=== PATIENT | male | born 1955 | race Caucasian/White ===

== ENCOUNTER → 2017-02-23 | Outpatient (CLI) | payer OTHER | LOC: FIMAGING 13:37 | PROVIDERS: ATTEND Family Medicine Sports Medicine | DX: S56.811A Strain of other muscles, fascia and tendons at forearm level, right arm, initial encounter (principal); S53.441A Ulnar collateral ligament sprain of right elbow, initial encounter ==

== ENCOUNTER 2017-05-30 14:09 | Emergency (ER) | payer OTHER ==
--- NOTE | 2017-05-30 14:33 | CPEKG ---
Heart Rate: 70 RR Interval: 857 P-R Interval: 204 QRSD Interval: 88 QT Interval: 388 QTC Interval: 419 P Moriah: 10 QRS Moriah: 20 T Wave Moriah: 10 EKG Severity - ABNORMAL ECG - EKG Impression: SINUS RHYTHM EKG Impression: SUPRAVENTRICULAR BIGEMINY Electronically Signed By: Nirmal Rahman 30-May-2017 15:27:18
[2017-05-30 15:23] LABS: % IMMATURE GRANULYOCYTES 0.3 % (0.0-1.1); ABSOLUTE IMMATURE GRANULOCYTES 0.02 10^3/uL (0.00-0.10); ADD DIFF? NO; ADD MORPH? NO; ADD SCAN? NO; ATYPICAL LYMPHOCYTE FLAG 0 (0-99); FRAGMENT RBC FLAG 0 (0-99); HEMATOCRIT 44.6 % (40.0-51.0); HEMOGLOBIN 15.1 g/dL (13.7-17.5); LEFT SHIFT FLG 0 (0-99); LIPEMIA HEMOLYSIS FLAG 90 (0-99); MEAN CELL HEMOGLOBIN 31.7 pg (27.9-34.1); MEAN CELL HEMOGLOBIN CONCENTR. 33.9 g/dL (32.4-36.7); MEAN CELL VOLUME 93.5 fL (81.5-99.8); MEAN PLATELET VOLUME 10.3 fL (8.7-11.7); PLATELET CLUMPS FLAG 0 (0-99); PLATELET COUNT 205 10^3/uL (150-400); RED BLOOD CELL COUNT 4.77 10^6/uL (4.40-6.38); RED CELL DISTRIBUTION WIDTH 13.4 % (11.5-15.2)
[2017-05-30 15:33] LABS: ANION GAP 15 mEq/L (8-16); CALCIUM 10.4 mg/dL (8.5-10.4); CARBON DIOXIDE 23 mEq/l (22-31); CHLORIDE 106 mEq/L (97-110); CREATININE 0.9 mg/dL (0.7-1.3); GLOMERULAR FILTRATION RATE > 60; GLUCOSE 98 mg/dL (70-100); POTASSIUM 4.3 mEq/L (3.5-5.2); SODIUM 144 mEq/L (134-144)
--- NOTE | 2017-05-30 15:35 | EDPHY ---
HPI/HX/ROS/PE/MDM Narrative: CHIEF COMPLAINT: Chest pain. HISTORY OF PRESENT ILLNESS: This patient is an anticoagulated 61 year old male complaining of an episode of chest pain while exercising around 11:15 this morning, now resolved. He has history of cardiac ablations for atrial fibrillation, and had a stent placed in 2005 following symptoms including low energy and shortness of breath. Today while on the [employer], he developed discomfort in the left side of his chest , near axilla, which he describes "like a balloon inside" his chest. This feeling was not reproducible, and did not radiate. He denied increased pain with inspiration. The discomfort began to resolve on cessation of exercise. Patient developed recurrent discomfort in the lower left chest when he was at home, taking a shower. Again, pain described as a vague pressure like feeling. Discomfort present from 12:15 to 1:15pm. He currently feels well. He denies recent illness, and has felt well prior today. No lower extremity pain or swelling. No fever, chills, shortness of breath, palpitations, nausea, vomiting, diarrhea, urinary complaints, headache, lightheadedness. REVIEW OF SYSTEMS: Aside from elements discussed in the HPI, a comprehensive 10-point review of systems was reviewed and is negative. PAST MEDICAL HISTORY: Atrial fibrillation (Eliquis), Stent placement, cardiac ablation SOCIAL HISTORY: Lives in [place]. . PCP Dr. Jo Ann Shaw. Cardiologists : Dr. Calhoun, Dr. Gutierrez VITAL SIGNS: Reviewed by me GENERAL: Well-developed, well-nourished, resting comfortably in no respiratory distress. HEENT: Atraumatic. Eyes: No icterus, no injection. Mouth: moist mucous membranes. No erythema or lesions. Neck: supple with no adenopathy. No carotid bruit. LUNGS: Clear to auscultation bilaterally, no wheezes, rhonchi or rales. CARDIAC: Regular rate and rhythm, no rubs, murmurs or gallops. No reproducible chest pain or tenderness on palpation. ABDOMEN: Soft, nontender, nondistended, bowel sounds normal. BACK: No CVA tenderness. EXTREMITIES: No trauma. No edema. Range of motion is normal throughout. NEURO: Alert and oriented, grossly nonfocal. SKIN: Warm and dry, no rash. PSYCHIATRIC: Normal mentation, no agitation. Portions of this note were transcribed by a general medical practitioner. I personally performed a history, physical exam, medical decision making, and confirmed accuracy of information the transcribed note. ED Course: 61-year-old male with history of ablation for afib and prior single stent placed in 2005 presents with 2 episodes of chest discomfort. Patient has been pain-free since arrival to the emergency department. Evaluation demonstrates a nonischemic EKG with evidence of supraventricular bigeminy. Troponin is negative. 4:15 p.m.: I recommended admission to the hospital for further cardiac evaluation as well as stress testing to the patient. He is very much opposed. He wishes to have serial troponins in the emergency department or follow up as an outpatient. Patients course discussed with Dr Yu. Review of patients cardiac workup previously; last stress test was 2014. Dr Garcia also recommends admission to hospital. Discussed cardiology recommendations with patient. He is aware that [facility] recommends admission and further evaluation. He understands that outpatient evaluation is not recommended and is not practical to obtain. Patient still wishes to proceed with serial troponin and then discharge if possible. 4 hour troponin now 0.023. Held long discussion with patient concerning rising troponin, prior history of ACS, recommendations from [facility] and myself; patient till adamant regarding his wishes to be discharged. He understands that an outpatient stress test via [facility] is NOT recommended and that he most likely will NOT be able to have this performed tomorrow. He understands my concerns. He understands [facility] risks, including ACS, cardiac ischemia, heart attack, arrhythmias, development of heart failure, cardiomyopathy, possibility of becoming a cardiac invalid, , stroke, coma, paralysis, seizure, collapse , and other unforeseen consequences of his actions. AMA form signed. Advised to return if chest pain recurs or if he has other symptoms or changes his mind. MDM: After history and physical examination, the differential for chest pain was considered, including but not limited to, myocardial ischemia, acute coronary syndrome, pulmonary embolus, chest wall pain, pleural inflammation and pulmonary infectious causes. - Data Points Laboratory Results: Laboratory Results 05/30/17 15:00 05/30/17 15:00 Medications Given: Discontinued Medications Aspirin (Aspirin) 324 mg PO EDNOW ONE Stop: 05/30/17 18:00 Last Admin: 05/30/17 18:07 Dose: 324 mg General Time Seen by Provider: 05/30/17 15:21 Initial Vital Signs: Initial Vital Signs Temperature (C) 36.5 C 05/30/17 14:22 Heart Rate 58 L 05/30/17 14:22 Respiratory Rate 16 05/30/17 14:22 Blood Pressure 110/66 05/30/17 14:22 O2 Sat (%) 96 05/30/17 14:22 O2 Delivery Mode Room Air Allergies/Adverse Reactions: No Known Allergies Allergy (Verified 10/07/15 13:09) Home Medications: Medication Instructions Recorded Apixaban [Eliquis] 5 mg PO BID #180 tablet 12/22/15 Metoprolol Tartrate [Lopressor 25 25 mg PO BID #180 tab 12/22/15 mg (*)] Crestor 05/30/17 Losartan Potassium 05/30/17 Departure - Departure Disposition: Home, Routine, Self-Care Clinical Impression: concern for acute coronary ischemia Chest pain Qualifiers: Chest pain type: unspecified Qualified Code(s): R07.9 - Chest pain, unspecified Condition: Fair Instructions: Angina (ED), Chest Pain (ED) Additional Instructions: You been offered admission to the hospital. We feel it is important that you have an urgent evaluation of the chest pain. You understand that we are concerned that there may be ongoing heart damage. You understand that you need an urgent risk stratification. You understand that this may not be able to be accomplished as an outpatient. Please return to the emergency department or seek care urgently if you develop ongoing or recurrent chest pain, palpitations, fainting, fevers, chills, vomiting, or other concerns. Please contact [facility] tomorrow to schedule an outpatient risk stratification test as soon as possible. You understand that you are leaving against medical advice Referrals: Jo Ann Shaw MD [Medical Doctor] - As per Instructions Jarrett Calhoun MD [Medical Doctor] - As per Instructions Report Scribed for: Marsha Smiley Report Scribed by: Treasure Polo Date of Report: 05/30/17 Time of Report: 15:42
[2017-05-30 15:45] LABS: TROPONIN I < 0.012 ng/mL (0-0.034)
[2017-05-30] MEDS ORDERED: ASPIRIN 81 MG CHEWABLE TAB PO ONE (17:59)
[2017-05-30 18:56] VITALS: RESP 15
[2017-05-30 19:50] VITALS: BP 104/77; PULSE 66; TEMP 98.6; O2SAT 96
== END 2017-05-30 19:49 | disposition home or self-care (01) ==
DX: R07.9 Chest pain, unspecified (principal); Z95.5 Presence of coronary angioplasty implant and graft

== ENCOUNTER → 2017-07-30 | Outpatient (CLI) | payer OTHER | LOC: BMCIMAGING 09:32 | PROVIDERS: ATTEND Internal Medicine Rheumatology | DX: M79.672 Pain in left foot (principal) ==

== ENCOUNTER 2017-08-06 09:06 | Day surgery (SDC) | payer OTHER ==
--- NOTE | 2017-08-06 07:42 | PDHPUP ---
History & Physical Update H&P update statement: This history and physical update is based on an assessment of the patient which was completed after admission or registration (within 24 hours), but prior to the surgery/procedure. H&P update: H&P reviewed & patient examined, no change in patient's condition since H&P completed
[~2017-08-06 09:06] MED LIST: ceFAZolin 2 GM/DEXTROSE 100 ML IV ONE
[2017-08-06] MEDS ORDERED: CEFAZOLIN 2 GM/DEXTROSE/100 ML BAG IV ONE (09:43)
[2017-08-06] MEDS ORDERED: LR 1,000 ML IV ONE (09:49)
[2017-08-06] MEDS ORDERED: BUPIVACAINE 0.5% 30 ML SDV ONE (10:19)
[2017-08-06] MEDS ORDERED: HEPARIN 1000 UNIT/1 ML MDV ONE (10:20)
[2017-08-06] MEDS ORDERED: IOTHALAMATE MEG (CONRAY) 50 ML VIAL IV ONE (10:20)
[2017-08-06] MEDS ORDERED: ceFAZolin 1 GM/5 ML SYR ONE (10:21)
--- NOTE | 2017-08-06 10:21 | PDANEPAE ---
ANE History of Present Illness 61 yo M here for laparoscopic inguinal hernia repair ANE Past Medical History - Cardiovascular History Hx Hypertension: Yes Hx Arrhythmias: Yes Hx Chest Pain: No Hx Coronary Artery / Peripheral Vascular Disease: Yes Hx CHF / Valvular Disease: No Hx Palpitations: Yes Cardiovascular History Comment: hx of afib. nuc stress test 6 wks ago for CP - Pulmonary History Hx COPD: No Hx Asthma/Reactive Airway Disease: No Hx Recent Upper Respiratory Infection: No Hx Oxygen in Use at Home: No Hx Sleep Apnea: Yes Sleep Apnea Screening Result - Last Documented: Positive - Neurologic History Hx Cerebrovascular Accident: No Hx Seizures: No Hx Dementia: No - Endocrine History Hx Diabetes: No - Renal History Hx Renal Disorders: No - Liver History Hx Hepatic Disorders: No - Neurological & Psychiatric Hx Hx Neurological and Psychiatric Disorders: No - Cancer History Hx Cancer: No - Congenital Disorder History Hx Congenital Disorders: No - GI History Hx Gastrointestinal Disorders: No - Chronic Pain History Chronic Pain: No (LEFT FOOT GOUT) - Surgical History Prior Surgeries: A-fib ablation 2012. 2nd ablation 2015 ANE Review of Systems Review of Systems: - Exercise capacity METS (RN): 4 METS - Cardio Pulmonary Function Testing Nuclear stress test: NST from 05/31/2017- recommends PCI to evaluate reversible defect in RCA distribution Pt's nurse ortho Lj OCHOA reviewed films and recommends "cleared for surgery" . Discussed with patient- he understands and agrees to proceed. ANE Patient History - Allergies Allergies/Adverse Reactions: No Known Allergies Allergy (Verified 10/07/15 13:09) - Home Medications Home medications: home medication list seen and reviewed Home Medications: Crestor 05/30/17 [Last Taken 08/05/17] Losartan Potassium 05/30/17 [Last Taken 08/05/17] Metoprolol Tartrate [Lopressor 25 mg (*)] 12.5 mg PO BID 08/06/17 [Last Taken ] - NPO status NPO Status: no food or drink >8 hours NPO Since - Liquids (Date): 08/06/17 NPO Since - Liquids (Time): 08:30 NPO Since - Solids (Date): 08/05/17 NPO Since - Solids (Time): 20:30 - Anes Hx Anes Hx: no prior problems - Smoking Hx Smoking Status: Former smoker - Alcohol Use Alcohol Use: Sober - Family Anes Hx Family Anes Hx: none Family Hx Anesthesia Complications: none ANE Labs/Vital Signs - Vital Signs Blood Pressure: 120/79 Heart Rate: 61 Respiratory Rate: 14 O2 Sat (%): 93 Height: 177.8 cm Weight: 92.986 kg ANE Physical Exam - Airway Neck exam: FROM Mallampati Score: Class 2 Mouth exam: normal dental/mouth exam - Pulmonary Pulmonary: no respiratory distress, clear to auscultation - Cardiovascular Cardiovascular: regular rate and rhythym, no murmur, rub, or gallop - ASA Status ASA Status: III ANE Anesthesia Plan Anesthesia Plan: general endotracheal anesthesia
[2017-08-06] MEDS ORDERED: MIDAZOLAM 2 MG/2 ML VIAL ONE (10:26)
[2017-08-06] MEDS ORDERED: PROPOFOL 200 MG/20 ML VIAL ONE ×2 (10:29)
[2017-08-06] MEDS ORDERED: fentaNYL 100 MCG/2 ML INJ ONE ×2 (10:29→11:49)
[2017-08-06] MEDS ORDERED: ROCURONIUM 50 MG/5 ML VIAL ONE ×2 (10:31→10:54)
[2017-08-06] MEDS ORDERED: LIDOCAINE 2% 100 MG/5 ML SYR ONE (10:33)
[2017-08-06] MEDS ORDERED: MEPERIDINE 25 MG/ML SYR IVP PRN (11:12)
[2017-08-06] MEDS ORDERED: ONDANSETRON 4 MG/2 ML VIAL IVP PRN (11:12)
[2017-08-06] MEDS ORDERED: NALOXONE HCL 0.4 MG/ML INJ IVP PRN (11:12)
[2017-08-06] MEDS ORDERED: HYDROmorphONE/DILAUDID 1 MG/ML INJ IVP PRN (11:12)
[2017-08-06] MEDS ORDERED: fentaNYL 100 MCG/2 ML INJ IVP PRN (11:12)
[2017-08-06] MEDS ORDERED: SUGAMMADEX SODIUM 200 MG/2 ML VIAL IVP ONE (11:42)
[2017-08-06] MEDS ORDERED: KETOROLAC 30 MG/1 ML SDV ONE (11:43)
[2017-08-06] MEDS ORDERED: MIDAZOLAM 2 MG/2 ML VIAL IVP ONE (11:49)
[2017-08-06] MEDS ORDERED: OXYCODONE/APAP 5/325 TAB PO PRN (11:50)
--- NOTE | 2017-08-06 11:55 | POSTOPPROG ---
Post Op Note Date of Operation: 08/06/17 Surgeon: Jarrett Raygoza Production Sanitizer: Thalia Scott Anesthesiologist: Jelani Shi Anesthesia: GET(General Endotracheal) Pre-op Diagnosis: LIH Post-op Diagnosis: BIH Procedure: lap BIH repair with mesh Inf/Abcess present in the surg proc area at time of surgery?: No EBL: Minimal Complications: none
[2017-08-06 12:17] VITALS: TEMP 97.5
[2017-08-06 13:26] VITALS: PULSE 63; RESP 17
[2017-08-06 13:35] VITALS: O2SAT 97
[2017-08-06 13:48] VITALS: BP 117/80
--- NOTE | 2017-08-06 21:32 | POSTANESTH ---
Post Anesthetic Evaluation Cardiovascular Status: Normal, Stable, Similar to Pre-Op Cond Respiratory Status: Normal, Stable, Similar to Pre-op Cond. Level of Consciousness/Mental Status: Can Participate in Eval, Alert and Oriented Pain Control: Adequate, Prn Tx Ordered Nausea/Vomiting Control: Adequate, Prn Tx Ordered Complications Possibly Related to Anesthesia: None Noted
--- NOTE | 2017-08-09 12:37 | GOP ---
[f rep st] OPERATIVE REPORT DATE OF OPERATION: 08/06/2017 SURGEON: Jarrett Raygoza MD INSPECTOR OF WEIGHTS AND MEASURES: CHRISTOPHER Bryant ANESTHESIOLOGIST: Dr. Shi. PREOPERATIVE DIAGNOSIS: Left inguinal hernia. POSTOPERATIVE DIAGNOSIS: Bilateral inguinal hernias. PROCEDURE PERFORMED: Laparoscopic bilateral inguinal hernia repairs with mesh. FINDINGS: Patient was found to have a large left inguinal indirect hernia. On the right, he had a s maller direct defect. DESCRIPTION OF PROCEDURE: Patient was taken to the operating room where he received satisfactory gen eral endotracheal anesthesia by Dr. Shi. He was placed in supine position, prepped and draped in t he usual sterile fashion. An infraumbilical incision was made. Dissection was carried down to the r ectus sheath which was incised. A subfascial tunnel was developed, preperitoneal space, that was dis sected free with balloon dissector which was replaced with a CO2 insufflation trocar. Two other troc ars were placed in midline under direct vision. Wei ligament was exposed bilaterally. The cords were mobilized bilaterally. Peritoneum was dissected off the cord structures. On the right side, th ere was no significant indirect sac, but a direct weakness on the left. There was a large indirect s ac which was dissected free and reduced. Bilateral Covidien mesh patches were introduced and placed over the inguinal floor. On the left side a split patch was used to pass the limb around the cord st ructures. They were anchored in a similar manner with AbsorbaTack, securing it to Wei's ligament, to the lacunar ligament, to the anterior abdominal wall, and the lateral abdominal wall outside the internal ring. Hemostasis was assured. Trocars were removed under direct vision. Pneumopreperitone um was released. Trocar sites were closed with 0 Vicryl for the fascia, 4-[address] itch for the skin. All layers infiltrated with 0.5% Marcaine. Blood loss negligible. No complicati ons. Taken to recovery room in good condition. /[id number]/MODL
== END 2017-08-06 14:20 | disposition home or self-care (01) ==
LOC: FSGY 09:06
PROVIDERS: ATTEND Surgery
PROC: 0WUF4JZ Supplement Abdominal Wall with Synthetic Substitute, Percutaneous Endoscopic Approach (ICD-10-PCS; principal; 2017-08-06 10:45)
DX: K40.20 Bilateral inguinal hernia, without obstruction or gangrene, not specified as recurrent (principal); M62.08 Separation of muscle (nontraumatic), other site
CPT/HCPCS: C1727; C1781; J0690; J1885; J2001; J2250; J2704; J3010; Q9961

== ENCOUNTER → 2017-10-04 | Outpatient (CLI) | payer OTHER | LOC: FIMAGING 08:20 | PROVIDERS: ATTEND Surgery | DX: K44.9 Diaphragmatic hernia without obstruction or gangrene (principal); K21.9 Gastro-esophageal reflux disease without esophagitis ==